=== PATIENT | female | born 1940 | race Caucasian/White ===

== ENCOUNTER 2017-12-27 09:49 | Emergency (ER) | payer MEDICARE, BC ==
[2017-12-27 10:01] VITALS: BP 189/79; PULSE 60; RESP 20; TEMP 98
--- NOTE | 2017-12-27 12:31 | XR ---
EXAMINATION TYPE: XR knee complete LT DATE OF EXAM: 12/27/2017 CLINICAL HISTORY: pain TECHNIQUE: Three views of the left knee are obtained. COMPARISON: None. FINDINGS: There is no acute fracture/dislocation. Severe degenerative narrowing patellofemoral joint space. The overlying soft tissue appears unremarkable. IMPRESSION: There is no acute fracture or dislocation ICD 10 NO FRACTURE, INITIAL EVALUATION
--- NOTE | 2017-12-27 12:31 | ED ---
General Adult HPI - General Chief complaint: Extremity Problem,Nontraumatic Stated complaint: Leg Pain Time Seen by Provider: 12/27/17 11:40 Source: patient, RN notes reviewed Mode of arrival: ambulatory Limitations: no limitations - History of Present Illness Initial comments: Patient is 77-year-old female presented to the emergency room today with chief complaint of pain to the left knee. Patient does admit that over the last week is been bothering her. She states that yesterday she made a certain movement when she was going to get up and she felt some crunching sounds. She does admit that with flexion she's felt some pain. She states that as she is up moving around it does start to feel a bit better. Patient denies any other injury or complaint. Patient denies any recent fever, chills, shortness of breath, chest pain, back pain, abdominal pain, nausea or vomiting, numbness or tingling, dysuria or hematuria, constipation or diarrhea, headaches or visual changes, or any other complaints. - Related Data Home Medications Medication Instructions Recorded Confirmed Calcium Carbonate [Calcium] 600 mg PO DAILY 12/27/17 12/27/17 Cholecalciferol [Vitamin D3] 1,000 unit PO DAILY 12/27/17 12/27/17 Ibuprofen [Advil] 400 mg PO Q8HR PRN 12/27/17 12/27/17 Levothyroxine Sodium [Synthroid] 100 mcg PO DAILY 12/27/17 12/27/17 Pravastatin Sodium [Pravachol] 10 mg PO HS 12/27/17 12/27/17 Allergies Allergy/AdvReac Type Severity Reaction Status Date / Time No Known Allergies Allergy Verified 12/27/17 11:42 Review of Systems ROS Statement: Those systems with pertinent positive or pertinent negative responses have been documented in the HPI. ROS Other: All systems not noted in ROS Statement are negative. Past Medical History Past Medical History: Cancer, Hyperlipidemia, Thyroid Disorder Additional Past Medical History / Comment(s): breast cancer, bladder cancer History of Any Multi-Drug Resistant Organisms: None Reported Past Surgical History: Hysterectomy Additional Past Surgical History / Comment(s): left mastectomy Past Psychological History: No Psychological Hx Reported Smoking Status: Former smoker Past Alcohol Use History: Occasional Past Drug Use History: None Reported General Exam - General Exam Comments Initial Comments: General: The patient is awake and alert, in no distress, and does not appear acutely ill. Neck: The neck is supple, there is no tenderness or JVD. Musculoskeletal: Normal appearance of the left knee no obvious deformity. Patient does has mild tenderness to the posterior calf. Mildly tender on exam to the posterior to area. No significant swelling on exam. Sensations intact. Pulses 2+. Neurological: A&O x 3. CN II-XII intact, There are no obvious motor or sensory deficits. Coordination appears grossly intact. Speech is normal. Skin: Skin is warm and dry and no rashes or lesions are noted. Psychiatric: Normal mood and affect. Limitations: no limitations Course Vital Signs 12/27/17 09:57 Temperature 98.0 F Pulse Rate 60 Respiratory 20 Rate Blood Pressure 189/79 O2 Sat by Pulse 98 Oximetry Medical Decision Making - Medical Decision Making Patient reexamined at this time shows no signs of distress. Ultrasound negative for any evidence of DVT. X-ray is negative. Patient is ambulatory able to bear weight. Advised follow-up in 710 days for repeat x-rays or further evaluation with orthopedics possible MRI symptoms persist. Advised ice elevate for symptoms at this time. Advised return for any other concerns. Disposition Clinical Impression: Knee injury Disposition: HOME SELF-CARE Condition: Good Instructions: Knee Pain (ED) Additional Instructions: Please follow-up with orthopedic/family doctor in the next 7-10 days of symptoms have not improved. Please return to emergency room if the symptoms increase or worsen or for any other concerns. Is patient prescribed a controlled substance at d/c from ED?: No Referrals: Greg Pagan DO [Primary Care Provider] - 1-2 days Time of Disposition: 13:39
--- NOTE | 2017-12-27 13:12 | US ---
EXAMINATION TYPE: US venous doppler duplex LE LT DATE OF EXAM: 12/27/2017 1:02 PM COMPARISON: NONE CLINICAL HISTORY: Pain left leg. SIDE PERFORMED: Left TECHNIQUE: The lower extremity deep venous system is examined utilizing real time linear array sonog vicky with graded compression, doppler sonography and color-flow sonography. VESSELS IMAGED: External Iliac Vein (EIV) Common Femoral Vein Deep Femoral Vein Greater Saphenous Vein * Femoral Vein Popliteal Vein Small Saphenous Vein * Proximal Calf Veins (* superficial vessels) Grayscale, color doppler, spectral doppler imaging performed of the deep veins of the lower extremiti es. There is normal flow, compressibility, vascular waveforms. Left Leg: Negative for DVT IMPRESSION: No evidence of DVT
== END 2017-12-27 13:44 | disposition home or self-care (01) ==
LOC: EC 09:49
DX: M79.662 Pain in left lower leg (principal); S89.92XA Unspecified injury of left lower leg, initial encounter; E78.5 Hyperlipidemia, unspecified; E07.9 Disorder of thyroid, unspecified; Z87.891 Personal history of nicotine dependence; Z79.899 Other long term (current) drug therapy; Z85.3 Personal history of malignant neoplasm of breast; Z90.12 Acquired absence of left breast and nipple; X58.XXXA Exposure to other specified factors, initial encounter
CPT/HCPCS: 99284

== ENCOUNTER 2018-07-06 12:24 | Inpatient (IN) | payer MEDICARE, BC ==
[2018-07-06] MEDS ORDERED: methylPREDNISolone SOD SUCCI 125 MG/2 ML VIAL IV STA (12:57)
[2018-07-06] MEDS ORDERED: IPRATROPIUM-ALBUTEROL 3 ML NEB INHALATION STA (12:57)
[2018-07-06] MEDS ORDERED: SODIUM CHLORIDE 0.9% 1,000 ML IV STA (12:57)
--- NOTE | 2018-07-06 13:05 | ED ---
SOB HPI - General Chief Complaint: Shortness of Breath Stated Complaint: MIKE Time Seen by Provider: 07/06/18 12:25 Source: patient, EMS, RN notes reviewed Mode of arrival: EMS Limitations: no limitations - History of Present Illness Initial Comments: This 78-year-old female who is brought in by EMS with complaints of shortness of breath and cough. She states she has been chronically short of breath or last several years but started getting really bad this past week just started coughing mostly nonproductive but it did become productive after a nebulizer treatment and route given by paramedics. She denies any chest pain fevers chills nausea vomiting sweats just exertional dyspnea and no relief with her home medications. She is a former smoker she quit over 40 years ago. Does not use home oxygen. She does use some respiratory medicines. No other modifying factors at this time MD Complaint: shortness of breath, cough - Related Data Home Medications Medication Instructions Recorded Confirmed Calcium Carbonate [Calcium] 600 mg PO DAILY 12/27/17 07/06/18 Cholecalciferol [Vitamin D3] 1,000 unit PO DAILY 12/27/17 07/06/18 Levothyroxine Sodium [Synthroid] 100 mcg PO DAILY 12/27/17 07/06/18 Allergies Allergy/AdvReac Type Severity Reaction Status Date / Time No Known Allergies Allergy Verified 07/06/18 12:58 Review of Systems ROS Statement: Those systems with pertinent positive or pertinent negative responses have been documented in the HPI. ROS Other: All systems not noted in ROS Statement are negative. Past Medical History Past Medical History: Cancer, Hyperlipidemia, Thyroid Disorder Additional Past Medical History / Comment(s): breast cancer, bladder cancer History of Any Multi-Drug Resistant Organisms: None Reported Past Surgical History: Hysterectomy Additional Past Surgical History / Comment(s): left mastectomy Past Psychological History: No Psychological Hx Reported Smoking Status: Former smoker Past Alcohol Use History: Occasional Past Drug Use History: None Reported General Exam - General Exam Comments Initial Comments: This is a well-developed sec appearing female who is awake alert oriented 3 she does have audible wheezing Limitations: no limitations General appearance: alert, anxious Head exam: Present: atraumatic, normocephalic, normal inspection Eye exam: Present: normal appearance, PERRL, EOMI. Absent: scleral icterus, conjunctival injection, periorbital swelling ENT exam: Present: mucous membranes dry Neck exam: Present: normal inspection. Absent: tenderness, meningismus, lymphadenopathy Respiratory exam: Present: wheezes, accessory muscle use, decreased breath sounds. Absent: respiratory distress, rales, rhonchi, stridor Cardiovascular Exam: Present: normal rhythm, tachycardia, normal heart sounds. Absent: systolic murmur, diastolic murmur, rubs, gallop, clicks GI/Abdominal exam: Present: soft, normal bowel sounds. Absent: distended, tenderness, guarding, rebound, rigid Extremities exam: Present: normal inspection, full ROM, normal capillary refill. Absent: tenderness, pedal edema, joint swelling, calf tenderness Back exam: Present: normal inspection Neurological exam: Present: alert, oriented X3, CN II-XII intact Psychiatric exam: Present: normal affect, normal mood Skin exam: Present: warm, dry, intact, normal color. Absent: rash Course Vital Signs 07/06/18 07/06/18 07/06/18 12:27 12:30 12:31 Temperature 98.6 F Pulse Rate 103 H 110 H Respiratory 25 H 25 H 28 H Rate Blood Pressure 161/80 161/80 O2 Sat by Pulse 94 L Oximetry 07/06/18 07/06/18 07/06/18 12:40 12:48 12:50 Temperature Pulse Rate 101 H 109 H Respiratory 19 24 19 Rate Blood Pressure 161/80 161/80 O2 Sat by Pulse 98 98 Oximetry 07/06/18 07/06/18 07/06/18 13:00 13:09 13:10 Temperature Pulse Rate 101 H 94 98 Respiratory 18 22 Rate Blood Pressure 161/80 152/78 O2 Sat by Pulse 98 100 Oximetry 07/06/18 07/06/18 13:15 13:20 Temperature Pulse Rate 90 102 H Respiratory 11 L Rate Blood Pressure 152/78 O2 Sat by Pulse 100 Oximetry - Reevaluation(s) Reevaluation #1: 07/06/18 14:52 Reevaluation patient has initial treatment reveals minimal improvement though she does states she feels better she still has markedly diminished breath sounds Reevaluation #2: 07/06/18 14:52 Patient still has markedly diminished breath sounds with audible wheezing some accessory muscle use she does however maintained saturation. Medical Decision Making - Medical Decision Making Patient does demonstrate evidence of COPD exacerbation with failure thus far to render much improvement. Patient will be admitted. - Lab Data Result diagrams: 07/06/18 12:45 07/06/18 12:45 Lab Results 07/06/18 07/06/18 07/06/18 Range/Units 12:45 12:45 14:05 WBC 7.1 (3.8-10.6) k/uL RBC 4.57 (3.80-5.40) m/uL Hgb 14.0 (11.4-16.0) gm/dL Hct 42.3 (34.0-46.0) % MCV 92.6 (80.0-100.0) fL MCH 30.6 (25.0-35.0) pg MCHC 33.1 (31.0-37.0) g/dL RDW 12.8 (11.5-15.5) % Plt Count 261 (150-450) k/uL Neutrophils % 81 % Lymphocytes % 7 % Monocytes % 9 % Eosinophils % 1 % Basophils % 0 % Neutrophils # 5.7 (1.3-7.7) k/uL Lymphocytes # 0.5 L (1.0-4.8) k/uL Monocytes # 0.6 (0-1.0) k/uL Eosinophils # 0.0 (0-0.7) k/uL Basophils # 0.0 (0-0.2) k/uL PT 9.6 (9.0-12.0) sec INR 0.9 (<1.2) APTT 24.2 (22.0-30.0) sec D-Dimer 0.59 (<0.60) mg/L FEU Sodium 133 L (137-145) mmol/L Potassium 4.5 (3.5-5.1) mmol/L Chloride 99 (98-107) mmol/L Carbon Dioxide 21 L (22-30) mmol/L Anion Gap 13 mmol/L BUN 19 H (7-17) mg/dL Creatinine 0.60 (0.52-1.04) mg/dL Est GFR (CKD-EPI)AfAm >90 (>60 ml/min/1.73 sqM) Est GFR (CKD-EPI)NonAf 87 (>60 ml/min/1.73 sqM) Glucose 109 H (74-99) mg/dL Calcium 9.1 (8.4-10.2) mg/dL Magnesium 2.0 (1.6-2.3) mg/dL Total Bilirubin 0.9 (0.2-1.3) mg/dL AST 39 H (14-36) U/L ALT 21 (9-52) U/L Alkaline Phosphatase 88 (38-126) U/L Total Protein 7.8 (6.3-8.2) g/dL Albumin 4.2 (3.5-5.0) g/dL - EKG Data -: EKG Interpreted by Me (Sinus tachycardia with evidence of PACs rate was 101. Interval 150 QRS dur) - Radiology Data Radiology results: report reviewed (I did review the imaging is evidence of COPD no infiltrate seen.), image reviewed Critical Care Time Critical Care Time: Yes Critical Care Time: 31 minutes of critical care time which includes initial presentation with history physical labs x-rays several reevaluation the patient response to therapy discussion with the admitting physician admission orders and documentation of the above. Disposition Clinical Impression: Acute exacerbation of chronic obstructive airways disease, Adult respiratory distress syndrome Disposition: ADMITTED IP TO THIS HOSP Condition: Stable Referrals: Greg Pagan DO [Primary Care Provider] - 1-2 days
[2018-07-06 13:23] LABS: Basophils % (A) 0 %; Eosinophils % (A) 1 %; HCT 42.3 % (34.0-46.0); Lymphocytes # (A) 0.5 k/uL (1.0-4.8); Lymphocytes % (A) 7 %; MCH 30.6 pg (25.0-35.0); MCHC 33.1 g/dL (31.0-37.0); MCV 92.6 fL (80.0-100.0); Mean Platelet Volume 7.1; Monocytes # (A) 0.6 k/uL (0-1.0); Monocytes % (A) 9 %; Neutrophils # (A) 5.7 k/uL (1.3-7.7); Neutrophils % (A) 81 %; Platelet Count 261 k/uL (150-450); RBC 4.57 m/uL (3.80-5.40); RDW 12.8 % (11.5-15.5); WBC 7.1 k/uL (3.8-10.6)
[2018-07-06 13:34] LABS: ALT 21 U/L (9-52); AST 39 U/L (14-36); Albumin 4.2 g/dL (3.5-5.0); Alkaline Phosphatase 88 U/L (38-126); Anion Gap 13 mmol/L; Blood Urea Nitrogen 19 mg/dL (7-17); Calcium 9.1 mg/dL (8.4-10.2); Carbon Dioxide 21 mmol/L (22-30); Chloride 99 mmol/L (98-107); Glucose 109 mg/dL (74-99); Sodium 133 mmol/L (137-145); Total Bilirubin 0.9 mg/dL (0.2-1.3); Total Protein 7.8 g/dL (6.3-8.2)
[2018-07-06 13:35] LABS: Potassium 4.5 mmol/L (3.5-5.1)
--- NOTE | 2018-07-06 13:59 | XR ---
EXAMINATION TYPE: XR chest 2V DATE OF EXAM: 07/06/2018 COMPARISON: None HISTORY: 78-year-old female difficulty breathing TECHNIQUE: PA and lateral views FINDINGS: Heart normal size. Aorta and pulmonary vasculature within normal limits. Mild interstitial prominence as a chronic appearance. Nipple shadow at the right base. No consolidation or pleural effusion. Mild hyperinflation. Surgical clips from prior left-sided breast excision. IMPRESSION: Suspect underlying COPD. No acute process otherwise seen.
[2018-07-06 14:49] LABS: D-Dimer 0.59 mg/L FEU (<0.60); INR 0.9 (<1.2); Partial Thromboplastin Time 24.2 sec (22.0-30.0); Prothrombin Time 9.6 sec (9.0-12.0)
[2018-07-06 15:00] LABS: Creatine Kinase 235 U/L (30-135)
[2018-07-06 15:12] LABS: Creatine Kinase MB 2.8 ng/mL (0.0-2.4); Troponin I <0.012 ng/mL (0.000-0.034)
[2018-07-06 16:06] VITALS: BMI 19.5
[2018-07-06] MEDS: SODIUM CHLORIDE 0.9% 1,000 ML IV SCH (16:12)
[2018-07-06] MEDS: IPRATROPIUM-ALBUTEROL 3 ML NEB INHALATION SCH ×3 (16:24→23:48)
[2018-07-06] MEDS: methylPREDNISolone SOD SUCCI 125 MG/2 ML VIAL IV SCH ×2 (18:16→22:58)
[2018-07-06] MEDS ORDERED: ACETAMINOPHEN TAB 325 MG TAB PO PRN (18:24)
--- NOTE | 2018-07-06 19:48 | P.HPIM ---
History of Present Illness this is a pleasant 78 yo F with pmh of hypothyroidism, hyperlipidemia , who presents with one duraiton of worsening dyspena , associated with dry cough till today when she has a big episode of coughing yellow phlegm. on admission her wbc 7.1K , Hb 14, Platelet 261. Na 133. K 4.5. creatinine 0.6. CXR: COPD with no acute process. EKG: sinus tachycardia at 101, no significant ST-T changes. qtc 453. D-Dimer is 0.5 which is WNL. influenza : is pending . Review of Systems CONSTITUTIONAL: No fever, no malaise, no fatigue. HEENT: No recent visual problems or hearing problems. Denied any sore throat. CARDIOVASCULAR: No orthopnea, PND, no palpitations, no syncope. PULMONARY: no cough, no hemoptysis. GASTROINTESTINAL: No diarrhea, no nausea, no vomiting, no abdominal pain. Normoactive bowel sounds. NEUROLOGICAL: No headaches, no weakness, no numbness. HEMATOLOGICAL: Denies any bleeding or petechiae. GENITOURINARY: Denies any burning micturition, frequency, or urgency. MUSCULOSKELETAL/RHEUMATOLOGICAL: Denies any joint pain, swelling, or any muscle pain. ENDOCRINE: Denies any polyuria or polydipsia. Past Medical History Past Medical History: Cancer, Hyperlipidemia, Thyroid Disorder Additional Past Medical History / Comment(s): Breast cancer, Bladder cancer History of Any Multi-Drug Resistant Organisms: None Reported Past Surgical History: Hysterectomy Additional Past Surgical History / Comment(s): Left mastectomy with lymphnoids removed Past Anesthesia/Blood Transfusion Reactions: No Reported Reaction Past Psychological History: No Psychological Hx Reported Smoking Status: Former smoker Past Alcohol Use History: Occasional Past Drug Use History: None Reported Medications and Allergies Home Medications Medication Instructions Recorded Confirmed Type Calcium Carbonate [Calcium] 600 mg PO DAILY 12/27/17 07/06/18 History Cholecalciferol [Vitamin D3] 1,000 unit PO DAILY 12/27/17 07/06/18 History Levothyroxine Sodium [Synthroid] 100 mcg PO DAILY 12/27/17 07/06/18 History Allergies Allergy/AdvReac Type Severity Reaction Status Date / Time No Known Allergies Allergy Verified 07/06/18 12:58 Physical Exam Vitals: Vital Signs Temp Pulse Pulse Resp BP BP Pulse Ox 07/06/18 16:31 100 07/06/18 16:23 100 07/06/18 16:00 97.1 F L 99 20 154/82 99 07/06/18 15:35 97.4 F L 07/06/18 15:30 96 19 122/110 100 07/06/18 15:20 101 H 19 122/110 95 07/06/18 15:10 101 H 18 122/110 99 07/06/18 15:00 96 15 141/82 100 07/06/18 14:50 98 15 141/82 99 07/06/18 14:40 93 18 141/82 99 07/06/18 14:30 91 30 H 142/83 100 07/06/18 14:20 88 20 142/83 99 07/06/18 14:10 96 20 142/83 07/06/18 14:00 98 19 151/83 100 07/06/18 13:50 96 18 151/83 84 L 07/06/18 13:40 151/83 07/06/18 13:30 109 H 16 152/78 98 07/06/18 13:20 102 H 11 L 152/78 100 07/06/18 13:15 90 07/06/18 13:10 98 22 152/78 100 07/06/18 13:09 94 07/06/18 13:00 101 H 18 161/80 98 07/06/18 12:50 109 H 19 161/80 98 07/06/18 12:48 24 07/06/18 12:40 101 H 19 161/80 98 07/06/18 12:31 98.6 F 110 H 28 H 161/80 94 L 07/06/18 12:30 103 H 25 H 161/80 07/06/18 12:27 25 H Intake and Output 07/06/18 07/06/18 07/06/18 06:59 14:59 22:59 Other: # Voids 1 Weight 56.699 kg 56.5 kg GENERAL: The patient is alert and oriented x3, not in any acute distress. Well developed, well nourished. HEENT: Pupils are round and equally reacting to light. EOMI. No scleral icterus. No conjunctival pallor. Normocephalic, atraumatic. No pharyngeal erythema. No thyromegaly. CARDIOVASCULAR: S1 and S2 present. No murmurs, rubs, or gallops. PULMONARY: Chest is clear to auscultation, no crackles. B/L exp wheezing and prolonged expiratory phase ABDOMEN: Soft, nontender, nondistended, normoactive bowel sounds. No palpable organomegaly. MUSCULOSKELETAL: No joint swelling or deformity. EXTREMITIES: No cyanosis, clubbing, or pedal edema. NEUROLOGICAL: Gross neurological examination did not reveal any focal deficits. SKIN: No rashes. Results CBC & Chem 7: 07/06/18 12:45 07/06/18 12:45 Labs: Abnormal Lab Results - Last 24 Hours (Table) 07/06/18 07/06/18 07/06/18 Range/Units 12:45 12:45 14:05 Lymphocytes # 0.5 L (1.0-4.8) k/uL Sodium 133 L (137-145) mmol/L Carbon Dioxide 21 L (22-30) mmol/L BUN 19 H (7-17) mg/dL Glucose 109 H (74-99) mg/dL AST 39 H (14-36) U/L Total Creatine Kinase 235 H (30-135) U/L CK-MB (CK-2) 2.8 H (0.0-2.4) ng/mL Thrombosis Risk Factor Assmnt - Choose All That Apply Each Factor Represents 1 point: Abnormal pulmonary function (COPD) Each Risk Factor Represents 3 Points: Age 75 years or older Thrombosis Risk Factor Assessment Total Risk Factor Score: 4 Thrombosis Risk Factor Assessment Level: Moderate Risk Assessment and Plan Assessment: acute COPD exacerbation hyperlipidemia hypothyroidism mild hyponatremia Plan: this is pleasant 78 yo F who presents with acute COPD exacerbation , continue with the same treatment , continue with symptomatic treatment , resume home medication , monitor lytes and vitals . call pulmonary disease consult is. c/w antibioitc . GI and DVT prophylaxis , further recommendation based upon pt clinical course and progress DVT prophylaxis subcutaneous heparin GI prophylaxis Pepcid PT/OT: pending Prognosis is guarded
[2018-07-06] MEDS: MELATONIN 3 MG TABLET PO SCH (20:21)
--- NOTE | 2018-07-06 22:08 | XR ---
PROCEDURE: XR knee complete RT - 3V DATE AND TIME: 07/06/2018 5:18 PM CLINICAL INDICATION: PHH; right knee pain TECHNIQUE: Department protocol COMPARISON: None FINDINGS: There is no fracture or malalignment. There is medial and anterior compartmental joint space narrowing and osteophytic spur formation, cons istent with moderate osteoarthritis. Small joint effusion noted in the suprapatellar bursa. The soft tissues are otherwise unremarkable. IMPRESSION: 1. Anterior and medial compartment osteoarthritis. 2. Small joint effusion.
[2018-07-07] MEDS: SODIUM CHLORIDE 0.9% 1,000 ML IV SCH ×2 (03:49→17:15)
[2018-07-07] MEDS: IPRATROPIUM-ALBUTEROL 3 ML NEB INHALATION SCH ×7 (04:36→23:18)
[2018-07-07] MEDS: LEVOTHYROXINE 100 MCG TAB PO SCH (05:42)
[2018-07-07] MEDS: methylPREDNISolone SOD SUCCI 125 MG/2 ML VIAL IV SCH ×4 (05:42→23:17)
[2018-07-07] MEDS: CALCIUM CARBONATE 500 MG CHEWABLE PO SCH (09:00)
[2018-07-07] MEDS: CHOLECALCIFEROL 1,000 UNIT TAB PO SCH (09:02)
--- NOTE | 2018-07-07 12:40 | US ---
EXAMINATION TYPE: US venous doppler duplex LE DATE OF EXAM: 07/07/2018 12:18 PM COMPARISON: NONE CLINICAL HISTORY: Rule out DVT. Right knee pain. No hx of blood clots. No blood thinners. No redne ss. No swelling. SIDE PERFORMED: Bilateral. TECHNIQUE: The lower extremity deep venous system is examined utilizing real time linear array sonog vicky with graded compression, doppler sonography and color-flow sonography. VESSELS IMAGED: External Iliac Vein (EIV) Common Femoral Vein Deep Femoral Vein Greater Saphenous Vein * Femoral Vein Popliteal Vein Small Saphenous Vein * Proximal Calf Veins (* superficial vessels) Grayscale, color doppler, spectral doppler imaging performed of the deep veins of the lower extremiti es. There is normal flow, compressibility, vascular waveforms. Right Leg: Negative for DVT Left Leg: Negative for DVT IMPRESSION: No sonographic evidence of deep venous thrombosis within either lower extremity.
--- NOTE | 2018-07-07 13:21 | P.PN ---
Subjective this is a pleasant 78 yo F with pmh of hypothyroidism, hyperlipidemia , who presents with one duraiton of worsening dyspena , associated with dry cough till today when she has a big episode of coughing yellow phlegm. on admission her wbc 7.1K , Hb 14, Platelet 261. Na 133. K 4.5. creatinine 0.6. CXR: COPD with no acute process. EKG: sinus tachycardia at 101, no significant ST-T changes. qtc 453. D-Dimer is 0.5 which is WNL. influenza : is negative . 07/07/2018 Patient is still feels a little bit more dyspneic. Patient still have some wheezes. Patient also complaining of from right knee pain and swelling and tenderness, as well as going on for a week which got worse over 12 days. X-ray shows anterior and medial compartment osteoarthritis and small joint effusion. Orthopedic team has been consulted. Doppler for the lower extremity is negative. First d-dimer was negative at 0.59, repeat d-dimer was slightly elevated at 0.67. I spoke with the patient about the CT angiography of the thorax. Risks benefits and alternative are explained for the patient. Patient first referred to speak to supervisor [employer] before doing the test Objective - Vital Signs Vital signs: Vital Signs Temp 97.0 F L 07/07/18 07:00 Pulse 92 07/07/18 09:30 Resp 22 07/07/18 07:00 BP 147/81 07/07/18 07:00 Pulse Ox 99 07/07/18 07:00 Intake & Output 07/06/18 07/07/18 07/07/18 18:59 06:59 18:59 Intake Total 300 200 Balance 300 200 Weight 56.5 kg 56.5 kg Intake: Oral 300 200 Other: # Voids 1 1 - Exam GENERAL: The patient is alert and oriented x3, not in any acute distress. Well developed, well nourished. HEENT: Pupils are round and equally reacting to light. EOMI. No scleral icterus. No conjunctival pallor. Normocephalic, atraumatic. No pharyngeal erythema. No thyromegaly. CARDIOVASCULAR: S1 and S2 present. No murmurs, rubs, or gallops. -PULMONARY: Chest is clear to auscultation, no crackles. B/L exp wheezing and prolonged expiratory phase ABDOMEN: Soft, nontender, nondistended, normoactive bowel sounds. No palpable organomegaly. MUSCULOSKELETAL: No joint swelling or deformity. EXTREMITIES: No cyanosis, clubbing, or pedal edema. NEUROLOGICAL: Gross neurological examination did not reveal any focal deficits. SKIN: No rashes. - Labs CBC & Chem 7: 18 12:45 07/06/18 12:45 Labs: Abnormal Lab Results - Last 24 Hours (Table) 07/06/18 07/06/18 07/06/18 Range/Units 12:45 12:45 14:05 Lymphocytes # 0.5 L (1.0-4.8) k/uL Sodium 133 L (137-145) mmol/L Carbon Dioxide 21 L (22-30) mmol/L BUN 19 H (7-17) mg/dL Glucose 109 H (74-99) mg/dL AST 39 H (14-36) U/L Total Creatine Kinase 235 H (30-135) U/L CK-MB (CK-2) 2.8 H (0.0-2.4) ng/mL Assessment and Plan Assessment: acute COPD exacerbation , rule out other causes. Materials Assistant evaluated the patient Right knee arthritis hyperlipidemia hypothyroidism mild hyponatremia Plan: this is pleasant 78 yo F who presents with possible acute COPD exacerbation , pulmonology team has been consulted. As well as orthopedic team for her right knee arthritis. continue with the same treatment , continue with symptomatic treatment , resume home medication , monitor lytes and vitals . call pulmonary disease consult is. c/w antibioitc . GI and DVT prophylaxis , further recommendation based upon pt clinical course and progress DVT prophylaxis subcutaneous heparin GI prophylaxis Pepcid PT/OT: pending Prognosis is guarded
[2018-07-07] MEDS ORDERED: RX INFO: IV CONTRAST WAS GIVEN 1 EACH MISC MISCELLANE PRN (13:32)
[2018-07-07] MEDS: AZITHROMYCIN 500 MG TAB PO SCH (14:03)
--- NOTE | 2018-07-07 14:10 | P.CNOR ---
History of Present Illness - [facility] Consult date: 07/07/18 Consult reason: joint pain (Right knee pain) History of present illness: The patient is an 78-year-old female that presented to the hospital for shortness of breath yesterday. The patient was found to have a COPD exacerbation and was admitted for further evaluation and care by the internal medicine and pulmonology. The patient states that she was an x-ray yesterday and went to stand up out of the wheelchair and felt a sharp pain on the superior aspect of her right knee. She states that the knee is feeling tight today but is feeling better. She had a similar episode while in [place] 2 weeks ago. The patient has seen Dr. White in the past and was diagnosed with osteoarthritis of the right knee. She did not receive any treatment at that time. She states she occasionally has pain in the knee but remains very active. She denies fever, chills, rigors, chest pain, or abdominal pain today. Venous Doppler of the right lower extremity was obtained today which was negative for DVT. Review of Systems Constitutional: Denies chills, Denies fatigue, Denies fever Cardiovascular: Reports shortness of breath, Denies chest pain Respiratory: Reports cough Gastrointestinal: Denies diarrhea, Denies nausea, Denies vomiting Musculoskeletal: right: knee pain, knee stiffness, knee swelling Past Medical History Past Medical History: Cancer, Hyperlipidemia, Thyroid Disorder Additional Past Medical History / Comment(s): Breast cancer, Bladder cancer History of Any Multi-Drug Resistant Organisms: None Reported Past Surgical History: Hysterectomy Additional Past Surgical History / Comment(s): Left mastectomy with lymphnoids removed Past Anesthesia/Blood Transfusion Reactions: No Reported Reaction Past Psychological History: No Psychological Hx Reported Smoking Status: Former smoker Past Alcohol Use History: Occasional Past Drug Use History: None Reported Medications and Allergies Home Medications Medication Instructions Recorded Confirmed Type Calcium Carbonate [Calcium] 600 mg PO DAILY 12/27/17 07/06/18 History Cholecalciferol [Vitamin D3] 1,000 unit PO DAILY 12/27/17 07/06/18 History Levothyroxine Sodium [Synthroid] 100 mcg PO DAILY 12/27/17 07/06/18 History Allergies Allergy/AdvReac Type Severity Reaction Status Date / Time No Known Allergies Allergy Verified 07/06/18 12:58 Physical Examination The patient is a very pleasant 78-year-old female who is visibly short of breath at this time. She is alert and oriented 3. Exam of the right lower extremity reveals a mild to moderate effusion to the knee, suprapatellar area. There is no specific pain upon palpation to the medial or lateral joint line. The patient does have good range of motion of the knee including 100 flexion and 0 extension. Negative Tori's. Normal hip ROM. Calf is soft and nontender. Good foot and ankle motion. Neurological and circulatory status is intact. Results - Labs Labs: Abnormal Lab Results - Last 24 Hours (Table) 07/06/18 07/07/18 Range/Units 14:05 12:52 D-Dimer 0.67 H (<0.60) mg/L FEU Total Creatine Kinase 235 H (30-135) U/L CK-MB (CK-2) 2.8 H (0.0-2.4) ng/mL H & H 07/06/18 Range/Units 12:45 Hgb 14.0 (11.4-16.0) gm/dL Hct 42.3 (34.0-46.0) % Coagulation 07/06/18 Range/Units 14:05 INR 0.9 (<1.2) Result Diagrams: 07/06/18 12:45 07/06/18 12:45 - Diagnostic results Knee x-ray: image reviewed (Patellofemoral and medial compartment osteoarthritis present. No acute fracture seen.) Assessment and Plan (1) Knee effusion, right Current Visit: Yes Status: Acute Code(s): M25.461 - EFFUSION, RIGHT KNEE SNOMED Code(s): 577927976 (2) Primary localized osteoarthritis of right knee Current Visit: Yes Status: Acute Code(s): M17.11 - UNILATERAL PRIMARY OSTEOARTHRITIS, RIGHT KNEE SNOMED Code(s): 333102474 Plan: The clinical and x-ray findings were discussed with the patient. The case was also discussed with Dr. Pierce Read. The patient was offered a knee aspiration and cortisone injection today. The patient declines aspiration and injection at this time due to her acute breathing problems. The patient was encouraged to either follow-up with Dr. White or our office on an as-needed basis if she continues to have problems with her knee. The patient is in agreement with this plan and we will sign off from orthopedic standpoint. If the patient changes her mind and would like an aspiration and injection of the knee while she is in the hospital, we are happy to reevaluate the patient.
--- NOTE | 2018-07-07 17:07 | P.CNPUL ---
History of Present Illness Consult date: 07/07/18 Reason for consult: dyspnea History of present illness: This is a 78-year-old female patient, who is coming in for increased shortness of breath. The patient has been followed up by Dr. Brice Mckinley on outpatient basis. She tells me that she has not been diagnosed having any form of chronic lung disease or disorder. She is not utilizing any form of maintenance inhalers. However, she has been found to have a unilateral vocal cord paralysis , the exact etiology has not been clear and the patient was given this diagnosis by an ENT physician, in [place], and she has problems with chronic hoarseness and noisy breathing. No history of any head trauma, spine trauma, blunt trauma, no history of the thoracic malignancy. The patient comes in to the hospital because of increased cough and some limited sputum production that she was unable to expectorate. The patient felt the chest was congested. Her breathing was gradually getting worse and for that reason the patient came into the hospital. The chest x-ray was clear. Most of chronic sinus disease. No reported history of aspiration. No difficulty in swallowing. No recurrent pneumonias. No recurrent bronchitis. She has a remote history of smoking. No 68 chronic form of neurologic disorder. She has hypothyroidism. Review of Systems Constitutional: Denies chills, Denies fever Eyes: denies as per HPI, denies blurred vision, denies bulging eye, denies decreased vision, denies diplopia, denies discharge, denies dry eye, denies irritation, denies itching, denies pain, denies photophobia, denies loss of peripheral vision, denies loss of vision, denies tunnel vision/blind spots Ears: deny: decreased hearing, ear discharge, earache, tinnitus Ears, nose, mouth and throat: Reports hoarseness, Reports voice changes Cardiovascular: Reports decreased exercise tolerance, Reports dyspnea on exertion Respiratory: Reports cough, Reports dyspnea, Reports wheezing Gastrointestinal: Denies abdominal pain, Denies diarrhea, Denies nausea, Denies vomiting Genitourinary: Reports as per HPI Musculoskeletal: absent: ankle pain, ankle stiffness, ankle swelling, as per HPI , elbow pain, elbow stiffness, elbow swelling, foot pain, foot stiffness, foot swelling, hand pain, hand stiffness, hand swelling, hip pain, hip stiffness, hip swelling, knee pain, knee stiffness, knee swelling, shoulder pain, shoulder stiffness, shoulder swelling, wrist pain, wrist stiffness, wrist swelling Neurological: Reports as per HPI Psychiatric: Denies anxiety, Denies depression Endocrine: Reports as per HPI Hematologic/Lymphatic: Reports as per HPI Allergic/Immunologic: Reports as per HPI Past Medical History Past Medical History: Cancer, Hyperlipidemia, Thyroid Disorder Additional Past Medical History / Comment(s): Breast cancer, post mastectomy on the left in 2001 not followed by any chemoradiation therapy and she had been receiving oral hormonal treatment, probably tamoxifen for a total of 5 years. The patient also has history of bladder cancer, post localize intravesicular resection of bladder tumor in 2001, hypothyroidism, unilateral vocal cord paralysis History of Any Multi-Drug Resistant Organisms: None Reported Past Surgical History: Hysterectomy Additional Past Surgical History / Comment(s): Left mastectomy with lymph nodes resection Past Anesthesia/Blood Transfusion Reactions: No Reported Reaction Past Psychological History: No Psychological Hx Reported Smoking Status: Former smoker Past Alcohol Use History: Occasional Past Drug Use History: None Reported Medications and Allergies Home Medications Medication Instructions Recorded Confirmed Type Calcium Carbonate [Calcium] 600 mg PO DAILY 12/27/17 07/06/18 History Cholecalciferol [Vitamin D3] 1,000 unit PO DAILY 12/27/17 07/06/18 History Levothyroxine Sodium [Synthroid] 100 mcg PO DAILY 12/27/17 07/06/18 History Allergies Allergy/AdvReac Type Severity Reaction Status Date / Time No Known Allergies Allergy Verified 07/06/18 12:58 Physical Exam Vitals: Vital Signs Temp Pulse Pulse Resp BP Pulse Ox 07/07/18 16:00 101 H 22 07/07/18 14:42 100.6 F H 101 H 22 155/79 100 07/07/18 09:30 92 07/07/18 09:17 92 07/07/18 07:00 97.0 F L 96 22 147/81 99 07/06/18 23:45 96.5 F L 107 H 20 123/60 98 07/06/18 21:25 90 07/06/18 21:15 90 Intake and Output 07/07/18 07/07/18 07/07/18 06:59 14:59 22:59 Intake Total 100 400 Balance 100 400 Intake: Oral 100 400 Other: # Voids 1 3 # Bowel Movements 1 Weight 56.5 kg 56.5 kg Gen. appearance, comfortable likely distress, Some noisy breathing is appreciated even while the patient is breathing at rest normally in bed. Her voice is essentially hoarse this point in time. Head exam was generally normal. There was no scleral icterus or corneal arcus. Mucous membranes were moist. Neck was supple and without jugular venous distension, thyromegaly, or carotid bruits. Carotids were easily palpable bilaterally. There was no adenopathy.No stridor. No neck masses. Lungs sounds are diminished otherwise clear. Vessels are equal and symmetrical. No crackles. No thoracic deformity. Cardiac exam revealed the PMI to be normally situated and sized. The rhythm was regular and no extrasystoles were noted during several minutes of auscultation. The first and second heart sounds were normal and physiologic splitting of the second heart sound was noted. There were no murmurs, rubs, clicks, or gallops. Abdominal exam revealed normal bowel sounds. The abdomen was soft, non-tender, and without masses, organomegaly, or appreciable enlargement of the abdominal aorta. Examination of the extremities revealed easily palpable radial, femoral and pedal pulses. There was no cyanosis, clubbing or edema. Examination of the skin revealed no evidence of significant rashes, suspicious appearing nevi or other concerning lesions. Neurologically awake and alert and there is no focal logical deficits. Results - Laboratory Findings CBC and BMP: 07/06/18 12:45 07/06/18 12:45 PT/INR, D-dimer PT 9.6 sec (9.0-12.0) 07/06/18 14:05 INR 0.9 (<1.2) 07/06/18 14:05 D-Dimer 0.67 mg/L FEU (<0.60) H 07/07/18 12:52 Abnormal lab findings: Abnormal Labs 07/06/18 07/06/18 07/06/18 12:45 12:45 14:05 Lymphocytes # 0.5 L D-Dimer Sodium 133 L Carbon Dioxide 21 L BUN 19 H Glucose 109 H AST 39 H Total Creatine Kinase 235 H CK-MB (CK-2) 2.8 H 07/07/18 12:52 Lymphocytes # D-Dimer 0.67 H Sodium Carbon Dioxide BUN Glucose AST Total Creatine Kinase CK-MB (CK-2) - Diagnostic Findings Chest x-ray: image reviewed Assessment and Plan Plan: assessment 1 acute bronchitis, negative influenza screen. Currently febrile and the patient is running a low-grade fever 100.6. The patient is otherwise hemodynamically stable. 2 chronic hoarseness and change in the voice characteristics, possibly due to vocal cord paralysis, unilateral, chronic although acute problems and upper airway cannot be completely ruled out 3 remote history of breast cancer post mastectomy 4 remote history of bladder cancer post-transurethral resection of bladder tumor 5 hypothyroidism Plan we will ask an ENT evaluation, as the patient would need and benefit from a direct laryngoscopy to assess her vocal cord structures and make sure there is no other pathology contributing to her change in voice and noisy breathing. No clear-cut stridor on physical examination. Will need a CAT scan of the neck and the chest with contrast.. Continue Zithromax. Continue bronchodilators. Continue steroids. We'll continue to follow.
[2018-07-07] MEDS ORDERED: BISACODYL 5 MG TABLET.DR PO SCH (18:00)
--- NOTE | 2018-07-07 18:09 | CT ---
EXAMINATION TYPE: CT neck chest w con DATE OF EXAM: 07/07/2018 5:35 PM COMPARISON: None HISTORY: COPD w/exacerbation CT DLP: 765 mGycm Automated exposure control for dose reduction was used. CONTRAST: CT scan of the neck and chest is performed following with IV Contrast, patient injected with 100 mL o f Isovue 300. Axial images are obtained, coronal and sagittal reformatted images are reviewed. FINDINGS: There is some consolidation and atelectasis at the right posterior lung base. There is no pleural eff usion. The other lung masters are fairly clear. There is no evidence of bronchial adenopathy. There ar e a few paratracheal lymph nodes that measure less than 1 cm. Thoracic aorta is atheromatous. There i s no evidence of aneurysm or dissection. There is no pericardial effusion. There is normal branching pattern of the great vessels on the aortic arch. There is some focal cortical thinning and calcificat ion in the posterior right kidney consistent with scarring. Thyroid gland appears absent. Epiglottis appears normal. There is spurring in the thoracic spine. Th e bony thorax is intact. There is spurring in the cervical spine with disc space narrowing. C5-6 C6-7 disc spaces with moderate spurring of the endplates. Prevertebral soft tissues are not enlarged. Tonsils and adenoids appear normal. There is some narrowi ng of the airway at the level of the glottis. There is circumferential mild wall thickening. This cou ld relate to edema. I do not see a discrete mass. There is no evidence of cervical lymphadenopathy. There is contrast opacification of the carotid karl beth and jugular veins. There is plaque formation at the carotid artery bifurcations bilaterally. The re is probably more than 50% stenosis at the origins of both internal carotid arteries. I see no cerv ical adenopathy. Submandibular salivary glands are symmetric. Parotid glands are symmetric. IMPRESSION: There is some narrowing of the glottic airway there is circumferential and could relate to edema. Absent thyroid gland. 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 Right lower lobe pneumonia and atelectasis.
[2018-07-07] MEDS: MELATONIN 3 MG TABLET PO SCH (19:53)
[2018-07-07 21:19] LABS: Glucose,Whole Blood 205 mg/dL (75-99)
[2018-07-07] MEDS: INSULIN ASPART 100 UNIT/ML 1 ML 10 ML VIAL SQ SCH (21:25)
--- NOTE | 2018-07-07 23:30 | US ---
EXAMINATION TYPE: US carotid duplex BILAT DATE OF EXAM: 07/07/2018 COMPARISON: CT done same day CLINICAL HISTORY: more than 50 % narrowing on ct scan . EXAM MEASUREMENTS: RIGHT: Peak Systolic Velocity (PSV) cm/sec ----- Right CCA: 105.1 ----- Right ICA: 196.6 ----- Right ECA: 205.2 ICA/CCA ratio: 1.9 RIGHT: End Diastole cm/sec ----- Right CCA: 16.0 ----- Right ICA: 29.3 ----- Right ECA: 0.0 LEFT: Peak Systolic Velocity (PSV) cm/sec ----- Left CCA: 94.0 ----- Left ICA: 188.4 ----- Left ECA: 99.1 ICA/CCA ratio: 2.0 LEFT: End Diastole cm/sec ----- Left CCA: 13.7 ----- Left ICA: 40.7 ----- Left ECA: 7.2 VERTEBRALS (direction of flow): Right Vertebral: Antegrade Left Vertebral: Antegrade Rhythm: Normal Extensive shadowing plaque at bulbs, left greater than right. Elevated ICA velocities bilaterally. IMPRESSION: There is antegrade flow in the vertebral arteries. There is significant plaque and shado wing at limits the velocity evaluation. The images and measurements suggest at least 70% stenosis in both internal carotid arteries. Criteria for Assigning % of Stenosis / Diameter reduction (Estimation based on the indirect measurements of the internal carotid artery velocities (ICA PSV). 1. Normal (no stenosis)=ICA PSV < 125 cm/s: ratio < 2.0: ICA EDV<40 cm/s. 2. Less than 50% stenosis=ICA PSV < 125 cm/s: ratio < 2.0: ICA EDV<40 cm/s. 3. 50 to 69% stenosis=ICA PSV of 125 to 230 cm/s: ration 2.0 ? 4.0: ICA EDV 40-100 cm/s. 4. Greater than 70% stenosis to near occlusion= ICA PSV > 230 cm/s: ratio > 4.0: ICA EDV > 100 cm/s. 5. Near occlusion= ICA PSV velocities may be low or undetectable: variable ratio and ICA EDV. 6. Total occlusion=unable to detect flow.
[2018-07-08] MEDS: IPRATROPIUM-ALBUTEROL 3 ML NEB INHALATION SCH ×3 (03:50→11:39)
[2018-07-08] MEDS: SODIUM CHLORIDE 0.9% 1,000 ML IV SCH (05:04)
[2018-07-08] MEDS: methylPREDNISolone SOD SUCCI 125 MG/2 ML VIAL IV SCH ×2 (05:05→12:25)
[2018-07-08] MEDS: LEVOTHYROXINE 100 MCG TAB PO SCH (05:05)
[2018-07-08 06:57] LABS: Glucose,Whole Blood 132 mg/dL (75-99)
[2018-07-08 07:09] LABS: Basophils % (A) 0 %; Eosinophils % (A) 0 %; HGB 11.3 gm/dL (11.4-16.0); Lymphocytes # (A) 0.3 k/uL (1.0-4.8); Lymphocytes % (A) 3 %; MCHC 31.3 g/dL (31.0-37.0); Monocytes # (A) 0.3 k/uL (0-1.0); Monocytes % (A) 3 %; Neutrophils # (A) 10.3 k/uL (1.3-7.7); Neutrophils % (A) 94 %; Platelet Count 306 k/uL (150-450); RBC 3.75 m/uL (3.80-5.40); RDW 12.9 % (11.5-15.5); WBC 10.9 k/uL (3.8-10.6)
[2018-07-08 07:24] LABS: ALT 27 U/L (9-52); AST 31 U/L (14-36); Albumin 3.2 g/dL (3.5-5.0); Alkaline Phosphatase 64 U/L (38-126); Anion Gap 7 mmol/L; Bilirubin, Delta 0.3 mg/dL (0.0-0.2); Blood Urea Nitrogen 15 mg/dL (7-17); Calcium 8.7 mg/dL (8.4-10.2); Carbon Dioxide 22 mmol/L (22-30); Chloride 108 mmol/L (98-107); Glucose 155 mg/dL (74-99); Potassium 3.7 mmol/L (3.5-5.1); Sodium 137 mmol/L (137-145); Total Bilirubin 0.3 mg/dL (0.2-1.3); Total Protein 6.3 g/dL (6.3-8.2)
[2018-07-08] MEDS: INSULIN ASPART 100 UNIT/ML 1 ML 10 ML VIAL SQ SCH ×2 (07:44→12:40)
[2018-07-08] MEDS: CHOLECALCIFEROL 1,000 UNIT TAB PO SCH (07:46)
[2018-07-08] MEDS: CALCIUM CARBONATE 500 MG CHEWABLE PO SCH (07:50)
[2018-07-08] MEDS ORDERED: HYDROcodone/APAP 5-325MG 1 EACH TAB PO PRN (07:55)
[2018-07-08] MEDS ORDERED: guaiFENesin-DM 100-10MG/5ML 10 ML CUP PO PRN (07:55)
[2018-07-08 08:48] LABS: T4, Free (Free Thyroxine) 1.92 ng/dL (0.78-2.19)
[2018-07-08] MEDS ORDERED: guaiFENesin 600 MG TABLET.ER PO SCH (09:00)
[2018-07-08 09:35] LABS: Creatine Kinase MB 10.7 ng/mL (0.0-2.4); Troponin I 0.014 ng/mL (0.000-0.034)
--- NOTE | 2018-07-08 09:55 | P.PN ---
Subjective this is a pleasant 78 yo F with pmh of hypothyroidism, hyperlipidemia , who presents with one duraiton of worsening dyspena , associated with dry cough till today when she has a big episode of coughing yellow phlegm. on admission her wbc 7.1K , Hb 14, Platelet 261. Na 133. K 4.5. creatinine 0.6. CXR: COPD with no acute process. EKG: sinus tachycardia at 101, no significant ST-T changes. qtc 453. D-Dimer is 0.5 which is WNL. influenza : is negative . 07/07/2018 Patient is still feels a little bit more dyspneic. Patient still have some wheezes. Patient also complaining of from right knee pain and swelling and tenderness, as well as going on for a week which got worse over 12 days. X-ray shows anterior and medial compartment osteoarthritis and small joint effusion. Orthopedic team has been consulted. Doppler for the lower extremity is negative. First d-dimer was negative at 0.59, repeat d-dimer was slightly elevated at 0.67. I spoke with the patient about the CT angiography of the thorax. Risks benefits and alternative are explained for the patient. Patient first referred to speak to cms expert before doing the test 06/08/2018 Patient also complaining of from dyspnea and coughing which is mostly dry. Today she has chest pain below left breast associated with tenderness and increased by movement significantly and also decreased by coughing. Nonspecific area mild to moderate in severity. Associated with local tenderness. And she still have hoarseness of voice. Computed tomography scan of the neck showing some swelling and possible edema in the airways around the glottic area. ENT have been consulted. Also doing troponins and EKG although her pain looks more like musculoskeletal. Continue with pain management and anti-to medication. Vitas looks stable, except for low-grade fever 100.6 yesterday. Mild leukocytosis today at 10.9, however patient is on steroids. Patient has been evaluated by orthopedic team and patient did not want to do aspiration of her knee. Her knee today looks significantly better compared to yesterday, with less swelling and hardness. There was some evidence of arterial stenosis, carotid Doppler has been ordered. Liver enzymes back to normal. TSH is low however free T4 is within normal limits. Objective - Vital Signs Vital signs: Vital Signs Temp 98.9 F 07/08/18 06:25 Pulse 100 07/08/18 07:59 Resp 18 07/08/18 06:25 BP 126/70 07/08/18 06:25 Pulse Ox 97 07/08/18 06:25 Intake & Output 07/07/18 07/08/18 07/08/18 18:59 06:59 18:59 Intake Total 637 Balance 637 Weight 56.5 kg Intake: Oral 637 Other: # Voids 3 2 # Bowel Movements 1 - Exam GENERAL: The patient is alert and oriented x3, not in any acute distress. Well developed, well nourished. HEENT: Pupils are round and equally reacting to light. EOMI. No scleral icterus. No conjunctival pallor. Normocephalic, atraumatic. No pharyngeal erythema. No thyromegaly. CARDIOVASCULAR: S1 and S2 present. No murmurs, rubs, or gallops. -PULMONARY: Chest is clear to auscultation, no crackles. B/L exp wheezing and prolonged expiratory phase ABDOMEN: Soft, nontender, nondistended, normoactive bowel sounds. No palpable organomegaly. MUSCULOSKELETAL: No joint swelling or deformity. EXTREMITIES: No cyanosis, clubbing, or pedal edema. NEUROLOGICAL: Gross neurological examination did not reveal any focal deficits. SKIN: No rashes. - Labs CBC & Chem 7: 07/08/18 07:00 07/08/18 06:53 Labs: Abnormal Lab Results - Last 24 Hours (Table) 07/07/18 07/07/18 07/08/18 Range/Units 12:52 21:18 06:51 WBC (3.8-10.6) k/uL RBC (3.80-5.40) m/uL Hgb (11.4-16.0) gm/dL Neutrophils # (1.3-7.7) k/uL Lymphocytes # (1.0-4.8) k/uL D-Dimer 0.67 H (<0.60) mg/L FEU Chloride (98-107) mmol/L Glucose (74-99) mg/dL POC Glucose (mg/dL) 205 H 132 H (75-99) mg/dL Delta Bilirubin (0.0-0.2) mg/dL Total Creatine Kinase (30-135) U/L CK-MB (CK-2) (0.0-2.4) ng/mL Albumin (3.5-5.0) g/dL TSH (0.465-4.680) mIU/L 07/08/18 07/08/18 07/08/18 Range/Units 06:53 07:00 08:34 WBC 10.9 H (3.8-10.6) k/uL RBC 3.75 L (3.80-5.40) m/uL Hgb 11.3 L (11.4-16.0) gm/dL Neutrophils # 10.3 H (1.3-7.7) k/uL Lymphocytes # 0.3 L (1.0-4.8) k/uL D-Dimer (<0.60) mg/L FEU Chloride 108 H (98-107) mmol/L Glucose 155 H (74-99) mg/dL POC Glucose (mg/dL) (75-99) mg/dL Delta Bilirubin 0.3 H (0.0-0.2) mg/dL Total Creatine Kinase 236 H (30-135) U/L CK-MB (CK-2) 10.7 H (0.0-2.4) ng/mL Albumin 3.2 L (3.5-5.0) g/dL TSH 0.071 L (0.465-4.680) mIU/L Assessment and Plan Assessment: acute COPD exacerbation , rule out other causes. Health Information Director evaluated the patient Right knee arthritis hyperlipidemia hypothyroidism mild hyponatremia Plan: this is pleasant 78 yo F who presents with possible acute COPD exacerbation , pulmonology team has been consulted. As well as orthopedic team for her right knee arthritis. continue with the same treatment , continue with symptomatic treatment , resume home medication , monitor lytes and vitals . call pulmonary disease consult is. c/w antibioitc . GI and DVT prophylaxis , further recommendation based upon pt clinical course and progress DVT prophylaxis subcutaneous heparin GI prophylaxis Pepcid PT/OT: pending Prognosis is guarded
--- NOTE | 2018-07-08 11:07 | P.OP ---
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 Etiology for the stridor is unknown and endoscopy is recommended. Operative Findings: Patient has a right vocal cord paralysis in the paramedian position. Patient has some subglottic stenosis with some irregular mucosal changes. Description of Procedure: A flexible E and F type GP nasopharyngoscope was placed into the patient's left nares. Intranasal crusting was noted because of her nasal cannula oxygen. We followed the floor the nose into the nasopharynx and oropharynx and hypopharynx. Complete upper airway evaluation was performed. The patient was found have a right vocal cord paralysis in the paramedian position. Subglottic stenosis was noted with some irregular mucosal changes seen.
--- NOTE | 2018-07-08 11:30 | P.GSCN ---
History of Present Illness Consult date: 07/08/18 Reason for Consult: Respiratory stridor y. Requesting physician: Krystin Hernandez History of present illness: This patient is an 78-year-old white female who has a 4 year standing history of a right vocal cord paralysis previously diagnosed but not treated. She was seen at a [facility] by Dr. Chapin. Nevertheless, recently over the last several months she's developed some inspiratory stridor that has progressively worsened. She lives [place] and had to call 911 and she was brought to the hospital for admission because of her inspiratory stridor. She been treated with inhalers with no significant improvement. Again her shortness of breath is from inspiratory stridor and what appears to be probably upper airway and I'm here to evaluate her upper airwa Review of Systems - Constitutional Denies chronic headaches - EENT Ears, nose, mouth and throat: Denies ant. neck pain, Denies dental pain - Cardiovascular Denies chest pain - Respiratory Reports as per HPI, Reports dyspnea - Gastrointestinal Denies change in bowel habits - Genitourinary Genitourinary: Denies difficulty voiding Menstruation: Reports as per HPI - Musculoskeletal Denies arm numbness/tingling - Integumentary Denies boils - Neurological Denies ataxia - Psychiatric Denies anhedonia - Endocrine Denies excessive sweating - Allergic/Immunologic Denies allergic rhinitis Past Medical History Past Medical History: Cancer, Hyperlipidemia, Thyroid Disorder Additional Past Medical History / Comment(s): Breast cancer, post mastectomy on the left in 2001 not followed by any chemoradiation therapy and she had been receiving oral hormonal treatment, probably tamoxifen for a total of 5 years. The patient also has history of bladder cancer, post localize intravesicular resection of bladder tumor in 2001, hypothyroidism, unilateral vocal cord paralysis History of Any Multi-Drug Resistant Organisms: None Reported Past Surgical History: Hysterectomy Additional Past Surgical History / Comment(s): Left mastectomy with lymph nodes resection Past Anesthesia/Blood Transfusion Reactions: No Reported Reaction Past Psychological History: No Psychological Hx Reported Smoking Status: Former smoker Past Alcohol Use History: Occasional Past Drug Use History: None Reported Medications and Allergies Home Medications Medication Instructions Recorded Confirmed Type Calcium Carbonate [Calcium] 600 mg PO DAILY 12/27/17 07/06/18 History Cholecalciferol [Vitamin D3] 1,000 unit PO DAILY 12/27/17 07/06/18 History Levothyroxine Sodium [Synthroid] 100 mcg PO DAILY 12/27/17 07/06/18 History Allergies Allergy/AdvReac Type Severity Reaction Status Date / Time No Known Allergies Allergy Verified 07/06/18 12:58 Surgical - Exam Osteopathic Statement: *. No significant issues noted on an osteopathic structural exam other than those noted in the History and Physical/Consult. Vital Signs Resp 25 H 07/06/18 12:27 - General well developed, well nourished, no distress - Eyes PERRL, normal ocular movement - ENT normal pinna, normal nares, normal mucosa, no hearing loss, no congestion - Neck no masses, no bruits, no lymphadectomy, no venous distension - Respiratory Inspiratory stridor is noted - Integumentary no rash, no growths - Neurologic normal coordination, normal sensation - Musculoskeletal normal gait, normal posture - Psychiatric oriented to time, oriented to person, oriented to place, speech is normal, memory intact Results - Labs 07/08/18 07:00 07/08/18 06:53 Abnormal Lab Results - Last 24 Hours (Table) 07/07/18 07/07/18 07/08/18 Range/Units 12:52 21:18 06:51 WBC (3.8-10.6) k/uL RBC (3.80-5.40) m/uL Hgb (11.4-16.0) gm/dL Neutrophils # (1.3-7.7) k/uL Lymphocytes # (1.0-4.8) k/uL D-Dimer 0.67 H (<0.60) mg/L FEU Chloride (98-107) mmol/L Glucose (74-99) mg/dL POC Glucose (mg/dL) 205 H 132 H (75-99) mg/dL Delta Bilirubin (0.0-0.2) mg/dL Total Creatine Kinase (30-135) U/L CK-MB (CK-2) (0.0-2.4) ng/mL Albumin (3.5-5.0) g/dL TSH (0.465-4.680) mIU/L 07/08/18 07/08/18 07/08/18 Range/Units 06:53 07:00 08:34 WBC 10.9 H (3.8-10.6) k/uL RBC 3.75 L (3.80-5.40) m/uL Hgb 11.3 L (11.4-16.0) gm/dL Neutrophils # 10.3 H (1.3-7.7) k/uL Lymphocytes # 0.3 L (1.0-4.8) k/uL D-Dimer (<0.60) mg/L FEU Chloride 108 H (98-107) mmol/L Glucose 155 H (74-99) mg/dL POC Glucose (mg/dL) (75-99) mg/dL Delta Bilirubin 0.3 H (0.0-0.2) mg/dL Total Creatine Kinase 236 H (30-135) U/L CK-MB (CK-2) 10.7 H (0.0-2.4) ng/mL Albumin 3.2 L (3.5-5.0) g/dL TSH 0.071 L (0.465-4.680) mIU/L Diabetes panel 07/08/18 Range/Units 06:53 Sodium 137 (137-145) mmol/L Potassium 3.7 (3.5-5.1) mmol/L Chloride 108 H (98-107) mmol/L Carbon Dioxide 22 (22-30) mmol/L BUN 15 (7-17) mg/dL Creatinine 0.53 (0.52-1.04) mg/dL Glucose 155 H (74-99) mg/dL Calcium 8.7 (8.4-10.2) mg/dL AST 31 (14-36) U/L ALT 27 (9-52) U/L Alkaline Phosphatase 64 (38-126) U/L Total Protein 6.3 (6.3-8.2) g/dL Albumin 3.2 L (3.5-5.0) g/dL Thyroid panel 07/08/18 Range/Units 06:53 TSH 0.071 L (0.465-4.680) mIU/L Calcium panel 07/08/18 Range/Units 06:53 Calcium 8.7 (8.4-10.2) mg/dL Albumin 3.2 L (3.5-5.0) g/dL Pituitary panel 07/08/18 Range/Units 06:53 Sodium 137 (137-145) mmol/L Potassium 3.7 (3.5-5.1) mmol/L Chloride 108 H (98-107) mmol/L Carbon Dioxide 22 (22-30) mmol/L BUN 15 (7-17) mg/dL Creatinine 0.53 (0.52-1.04) mg/dL Glucose 155 H (74-99) mg/dL Calcium 8.7 (8.4-10.2) mg/dL TSH 0.071 L (0.465-4.680) mIU/L Adrenal panel 07/08/18 Range/Units 06:53 Sodium 137 (137-145) mmol/L Potassium 3.7 (3.5-5.1) mmol/L Chloride 108 H (98-107) mmol/L Carbon Dioxide 22 (22-30) mmol/L BUN 15 (7-17) mg/dL Creatinine 0.53 (0.52-1.04) mg/dL Glucose 155 H (74-99) mg/dL Calcium 8.7 (8.4-10.2) mg/dL Total Bilirubin 0.3 (0.2-1.3) mg/dL AST 31 (14-36) U/L ALT 27 (9-52) U/L Alkaline Phosphatase 64 (38-126) U/L Total Protein 6.3 (6.3-8.2) g/dL Albumin 3.2 L (3.5-5.0) g/dL Assessment and Plan (1) Inspiratory stridor Current Visit: Yes Status: Acute Code(s): R06.1 - STRIDOR SNOMED Code(s): 17263373 (2) Subglottic stenosis Current Visit: Yes Status: Acute Code(s): J38.6 - STENOSIS OF LARYNX SNOMED Code(s): 24058508 (3) Vocal cord paralysis, unilateral complete Current Visit: Yes Status: Acute Code(s): J38.01 - PARALYSIS OF VOCAL CORDS AND LARYNX, UNILATERAL SNOMED Code(s): 20635144 Plan: This patient has a diffuse subglottic stenosis and the etiology is unknown. This could be from previous intubation with associated reflux disease. Other possibilities but more remotely would be Wilda's granulomatosis or relapsing polychondritis or sarcoid or amyloidosis etc. Laboratory evaluation will be performed to rule out some of these etiologies. This patient needs surgery and/ or invasive treatment for her subglottic stenosis. I'm recommending that this patient be transferred to a tertiary care center such as [facility] or [facility] for treatment. I do not think that this patient should be sent home because of an impending airway problem. Again I would recommend that she be transferred to [facility] or [facility] for definitive treatment and workup for the subglottic stenosis. Time with Patient: Greater than 30
[2018-07-08 12:23] LABS: Glucose,Whole Blood 177 mg/dL (75-99)
[2018-07-08] MEDS: AZITHROMYCIN 500 MG TAB PO SCH (12:25)
--- NOTE | 2018-07-08 14:21 | P.PN ---
Subjective Progress Note Date: 07/08/18 This is a 78-year-old female patient, who is coming in for increased shortness of breath. The patient has been followed up by Dr. Brice Mckinley on outpatient basis. She tells me that she has not been diagnosed having any form of chronic lung disease or disorder. She is not utilizing any form of maintenance inhalers. However, she has been found to have a unilateral vocal cord paralysis , the exact etiology has not been clear and the patient was given this diagnosis by an ENT physician, in [place], and she has problems with chronic hoarseness and noisy breathing. No history of any head trauma, spine trauma, blunt trauma, no history of the thoracic malignancy. The patient comes in to the hospital because of increased cough and some limited sputum production that she was unable to expectorate. The patient felt the chest was congested. Her breathing was gradually getting worse and for that reason the patient came into the hospital. The chest x-ray was clear. Most of chronic sinus disease. No reported history of aspiration. No difficulty in swallowing. No recurrent pneumonias. No recurrent bronchitis. She has a remote history of smoking. No 68 chronic form of neurologic disorder. She has hypothyroidism. On today's evaluation of 07/08/2008 and seeing this patient in follow-up. The patient already had an ENT consultation. She was found to have paralysis of the right vocal cords and the right vocal cord was paralyzed in the paramedian position. There was also evidence of subglottic stenosis with some irregular mucosal changes. The patient was seen by Dr. Messina and the recommendation was to transfer this patient to [facility] for a second evaluation regarding her subglottic stenosis. CAT scan of the chest was completed and showed a right lower lobe consolidation typical of an underlying pneumonia. The CAT scan also showed some narrowing of the glottic airway there was circumferential. The carotid Doppler also showed at least 70% stenosis in the internal carotid arteries bilaterally. Overall, the patient is doing well. The patient on DuoNeb nebulized treatments on the clock. The patient is on a combination of IV Solu Medrol 60 mg every 6 hours and she is also taking Zithromax 500 mg by mouth daily. I'm going to stop the Zithromax and updated this patient to [facility] with the findings of a right lower lobe consolidation/pneumonia. No fever. No chills. No aspiration. Speech is unchanged. She remains hoarse. Stridorous course can be appreciated in the neck area he had white cell count is at 10.9 Objective - Vital Signs Vital signs: Vital Signs Temp 98.9 F 07/08/18 06:25 Pulse 98 07/08/18 11:51 Resp 18 07/08/18 06:25 BP 126/70 07/08/18 06:25 Pulse Ox 97 07/08/18 12:22 Intake & Output 07/07/18 07/08/18 07/08/18 18:59 06:59 18:59 Intake Total 637 Balance 637 Weight 56.5 kg 56.5 kg Intake: Oral 637 Other: # Voids 3 2 2 # Bowel Movements 1 - Exam Gen. appearance, comfortable likely distress, Some noisy breathing is appreciated even while the patient is breathing at rest normally in bed. Her voice is essentially hoarse this point in time. Head exam was generally normal. There was no scleral icterus or corneal arcus. Mucous membranes were moist. Neck was supple and without jugular venous distension, thyromegaly, or carotid bruits. Carotids were easily palpable bilaterally. There was no adenopathy. There may be some soft stridor. No neck masses. Lungs sounds are diminished otherwise clear. Vessels are equal and symmetrical. No crackles. No thoracic deformity. Cardiac exam revealed the PMI to be normally situated and sized. The rhythm was regular and no extrasystoles were noted during several minutes of auscultation. The first and second heart sounds were normal and physiologic splitting of the second heart sound was noted. There were no murmurs, rubs, clicks, or gallops. Abdominal exam revealed normal bowel sounds. The abdomen was soft, non-tender, and without masses, organomegaly, or appreciable enlargement of the abdominal aorta. Examination of the extremities revealed easily palpable radial, femoral and pedal pulses. There was no cyanosis, clubbing or edema. Examination of the skin revealed no evidence of significant rashes, suspicious appearing nevi or other concerning lesions. Neurologically awake and alert and there is no focal logical deficits. - Labs CBC & Chem 7: 07/08/18 07:00 07/08/18 06:53 Labs: Abnormal Lab Results - Last 24 Hours (Table) 07/07/18 07/08/18 07/08/18 Range/Units 21:18 06:51 06:53 WBC (3.8-10.6) k/uL RBC (3.80-5.40) m/uL Hgb (11.4-16.0) gm/dL Neutrophils # (1.3-7.7) k/uL Lymphocytes # (1.0-4.8) k/uL Chloride 108 H (98-107) mmol/L Glucose 155 H (74-99) mg/dL POC Glucose (mg/dL) 205 H 132 H (75-99) mg/dL Delta Bilirubin 0.3 H (0.0-0.2) mg/dL Total Creatine Kinase (30-135) U/L CK-MB (CK-2) (0.0-2.4) ng/mL Albumin 3.2 L (3.5-5.0) g/dL TSH 0.071 L (0.465-4.680) mIU/L 07/08/18 07/08/18 07/08/18 Range/Units 07:00 08:34 12:22 WBC 10.9 H (3.8-10.6) k/uL RBC 3.75 L (3.80-5.40) m/uL Hgb 11.3 L (11.4-16.0) gm/dL Neutrophils # 10.3 H (1.3-7.7) k/uL Lymphocytes # 0.3 L (1.0-4.8) k/uL Chloride (98-107) mmol/L Glucose (74-99) mg/dL POC Glucose (mg/dL) 177 H (75-99) mg/dL Delta Bilirubin (0.0-0.2) mg/dL Total Creatine Kinase 236 H (30-135) U/L CK-MB (CK-2) 10.7 H (0.0-2.4) ng/mL Albumin (3.5-5.0) g/dL TSH (0.465-4.680) mIU/L Assessment and Plan Plan: assessment 1 acute right lower lobe pneumonia. The patient is currently monogamous is stable. The patient was treated with Zithromax earlier in addition to bronchodilators and systemic steroids. CAT scan of the chest is showing a right lower lobe consolidation.. C 2 right vocal cord paralysis in addition to subglottic stenosis based on direct laryngoscopic evaluation that was done by ENT 3 shortness of breath secondary to above 4 remote history of breast cancer post mastectomy 5 remote history of bladder cancer post-transurethral resection of bladder tumor 6 hypothyroidism 7 bilateral carotid artery disease with stenosis involving the internal cardiac artery as much a 70%. Plan Change and device a Levaquin oral 750 mg by mouth daily. We will. The same treatments of bronchodilators and systemic steroids.. This patient to be transferred to [facility]. The rest of the treatment with the bronchodilators steroids will be kept unchanged. We'll continue to follow. The case was discussed with ENT. Her case was also discussed with primary care. The case was discussed with the family. All aware of the current diagnosis.
[2018-07-08 14:27] LABS: Hemoglobin A1C 5.7 % (4.0-6.0)
[2018-07-08 14:56] VITALS: BP 123/65; PULSE 100; RESP 16; TEMP 99.4
[2018-07-08] MEDS ORDERED: LEVOFLOXACIN 750 MG TAB PO SCH (15:00)
[2018-07-10 05:31] LABS: Angiotensin-1 Converting Enz. 32 U/L (8-52)
[2018-07-10 13:24] LABS: C-ANCA <1:20 Titer (<1:20); P-ANCA <1:20 Titer (<1:20)
== END 2018-07-08 16:03 | disposition short-term general hospital (02) | DRG 154 ==
LOC: EC 12:24 → 4MS4W 15:07 → OBSVTOIN 07-07 17:08
PROVIDERS: ADMIT Internal Medicine; ATTEND Internal Medicine
PROC: 0CJS8ZZ Inspection of Larynx, Via Natural or Artificial Opening Endoscopic (ICD-10-PCS; principal; 2018-07-08)
DX: J38.01 Paralysis of vocal cords and larynx, unilateral (principal); J18.9 Pneumonia, unspecified organism; E87.1 Hypo-osmolality and hyponatremia; E03.9 Hypothyroidism, unspecified; E78.5 Hyperlipidemia, unspecified; M17.11 Unilateral primary osteoarthritis, right knee; J38.6 Stenosis of larynx; M25.461 Effusion, right knee; Z79.890 Hormone replacement therapy; Z85.3 Personal history of malignant neoplasm of breast; Z85.51 Personal history of malignant neoplasm of bladder; Z87.891 Personal history of nicotine dependence; Z90.12 Acquired absence of left breast and nipple; Z90.710 Acquired absence of both cervix and uterus
CPT/HCPCS: 36415; 70491; 71046; 71260; 80048; 80053; 80076; 82164; 82550; 82553; 82784; 82785; 83036; 83735; 83880; 84439; 84443; 84484; 84550; 85025; 85379; 85610; 85652; 85730; 86255; 86431; 87502; 93005; 93880; 93970; 94640; 96361; 96374; 99291